=== PATIENT | male | born 1985 | race Caucasian/White ===

== ENCOUNTER 2021-05-19 12:14 | Emergency (ER) | payer OTHER, SELFPAY ==
--- NOTE | ~2021-05-19 | XR_ITS ---
XR ankle LT min 3V DATE: 05/19/2021 12:49 INDICATION: Rolled ankle 6 weeks ago. Increasing pain at lateral aspect of left ankle. TECHNIQUE: 4 views COMPARISON: None FINDINGS: No fracture or dislocation of the ankle or disruption of the ankle mortise. No periosteal r eaction or bone destruction. IMPRESSION: Negative Reviewed, dictated and finalized at location B. IMPRESSION: Negative
[2021-05-19 12:22] VITALS: BP 142/88; PULSE 89; RESP 14; TEMP 36.7; O2SAT 99
[2021-05-19 12:35] VITALS: BP 142/88; PULSE 89; RESP 14; TEMP 36.7; O2SAT 99
--- NOTE | 2021-05-19 12:48 | ED.LOWEXIN ---
HPI - Extremity Injury (Lower) General Chief Complaint: Extremity Injury, Lower Stated Complaint: Possible left Ankle Injury Time Seen by Provider: 05/19/21 12:35 Source: patient and RN notes reviewed Mode of arrival: ambulatory Limitations: no limitations History of Present Illness HPI Narrative: 36-year-old male who presents to [facility] with complaints of left ankle pain for the past 6 weeks. Patient reports that he was stepping over something in his garage and twisted his left ankle outward. Patient has experienced pain to the left lateral ankle below the calcaneus which radiates to the heel and posteriorly up the back of the leg. Patient has been wearing a splint to his left ankle using intermittent ice and taking Ibuprofen. Patient states he was at [facility] physical and since he is still having problems with ankle told him he needed to have x-ray and follow-up.Patient states that he had prior history of TIA in 2017 and was on Eliquis for interval had extensive cardiac, neuro, and hematology workup with no specific findings, no longer takes anticoagulant except for daily 81 mg tabs of aspirin X2. complaint: ankle injury (Left) Related Data Home Medications Medication Instructions Recorded Confirmed aspirin 162 mg PO DAILY 05/19/21 05/19/21 Allergies Allergy/AdvReac Type Severity Reaction Status Date / Time No Known Allergies Allergy Verified 05/19/21 12:34 Review of Systems Review of Systems: CONSTITUTIONAL: Denies fever, chills, or sweats. EYES: Denies visual changes, redness, or discharge. ENT: Denies rhinorrhea, congestion, sore throat, or otalgia. CARDIOVASCULAR: Denies chest pain, palpitations, or edema. RESPIRATORY: Denies cough or dyspnea. GASTROINTESTINAL: Denies abdominal pain, nausea, vomiting, or diarrhea. GENITOURINARY: Denies dysuria or hematuria. SKIN: Denies rash or itching. MUSCULOSKELETAL: Denies back pain,positive for left ankle joint pain, or myalgia. NEUROLOGIC: Denies headache, numbness, or weakness. PSYCHIATRIC: Denies anxiety or depression. All systems reviewed & are unremarkable except as noted in HPI and below PMFSH Past Medical History Medical History (Updated 05/20/21 @ 21:14 by Desiree Chowdary NP) Anticoagulant long-term use no longer on eliquis only takes aspirin daily Family history of osteoporosis Fracture of right ankle Other jail (current) drug therapy TIA (transient ischemic attack) Surgical History Surgical History (Updated 05/20/21 @ 21:09 by Desiree Chowdary NP) History of removal of cyst from back Family History Family History Other Diabetes mellitus Grandparent No problems noted. Grandparent No problems noted. Sibling Epilepsy Sibling TIA (transient ischemic attack) Sibling TIA (transient ischemic attack) Other Family history of osteoporosis Social History Social History (Updated 05/19/21 @ 14:46 by Desiree Chowdary NP) Smoking status: Former smoker Additional smoking assessment comments: quit one year ago Alcohol intake: current Drinks per week: 5 Substance use type: does not use Living arrangements: with family Gender identity (if verbalized by the patient): Male Comments At time of signature, agree with nursing past medical, surgical, social and family history. There is no relevant family history pertinent to the presenting complaint Exam Narrative: GENERAL: Well-appearing, well-nourished, and in no acute distress. HEAD: Normocephalic, atraumatic. EYES: PERRLA and EOMI. ENT: Nares clear, no rhinorrhea or epistaxis. Mucous membranes moist. NECK: Supple.no lymphadenopathy CHEST: Clear to auscultation. No respiratory distress. SAO2 99% on room air HEART: Regular rate and rhythm. No murmur heard. Normal peripheral pulses. ABDOMEN: Soft, nontender, nondistended, normal active bowel sounds. EXTREMITIE
== END 2021-05-19 13:24 | disposition home or self-care (01) ==
PROVIDERS: Emergency Provider Registered Nurse
DX: M25.572 Pain in left ankle and joints of left foot (principal); Z87.891 Personal history of nicotine dependence; Z86.73 Personal history of transient ischemic attack (TIA), and cerebral infarction without residual deficits; Z79.82 Long term (current) use of aspirin
CPT/HCPCS: 73610; 99213; G0463